=== PATIENT | male | born 1990 | race Two or more races ===

== ENCOUNTER 2023-11-01 15:25 | Emergency (ER) | payer OTHER ==
[~2023-11-01] VITALS: Ht 180.3 cm; Wt 86.0 kg
[2023-11-01] MEDS: ALBUTEROL SULF 2.5 MG/0.5ML(0.5%) NEB SOLN NEB ONE (16:14)
[2023-11-01] MEDS: IPRATROPIUM BROM 0.5 MG/2.5ML INH SOL NEB ONE (16:14)
[2023-11-01] MEDS: DexAMETHasone SOD PHOS 10MG/1ML VIAL INJ IM ONE (16:17)
[2023-11-01] MEDS ORDERED: PRED20TA2 PO (17:31)
[2023-11-01] MEDS ORDERED: ALBU108A5 IN (17:31)
[2023-11-01 17:55] VITALS: BP 168/110; PULSE 105; RESP 18; TEMP 98.1; O2SAT 97
== END 2023-11-01 18:00 | disposition home or self-care (01) ==
LOC: ER 15:25
DX: J45.901 Unspecified asthma with (acute) exacerbation (principal)
CPT/HCPCS: 71045; 94640; 96372; 99283; J1100; J7644